=== PATIENT | male | born 1985 | race Caucasian/White ===

== ENCOUNTER 2017-01-19 01:18 | Emergency (ER) | payer OTHER ==
[~2017-01-19 01:18] MED LIST: ALBUTEROL17 G1 INH; ALBUTEROL17 GM INH; AMOXICILLIN PO; BACTRIM DS TABL1 TAB PO; DARVOCET-N 1001 TA1 DOB; LORTAB 2.5/5001 TAB PO; MEDROL PO; ULTRACET TABLET1 TAB PO
== END 2017-01-19 01:20 | disposition left against medical advice (07) ==
LOC: CFTX 01:18
DX: Z53.21 Procedure and treatment not carried out due to patient leaving prior to being seen by health care provider (principal)

== ENCOUNTER 2017-01-19 18:48 | Emergency (ER) | payer OTHER | END 2017-01-19 18:50 | disposition home or self-care (01) | LOC: CFTX 18:48 | DX: L02.415 Cutaneous abscess of right lower limb (principal); I10 Essential (primary) hypertension; F17.210 Nicotine dependence, cigarettes, uncomplicated; Z23 Encounter for immunization; Z88.0 Allergy status to penicillin | CPT/HCPCS: 90471; 90715; 99283 ==

== ENCOUNTER 2017-02-01 20:36 | Emergency (ER) | payer OTHER ==
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
== END 2017-02-01 21:38 | disposition home or self-care (01) ==
LOC: CED 20:36
DX: S06.0X0A Concussion without loss of consciousness, initial encounter (principal); F17.200 Nicotine dependence, unspecified, uncomplicated; W22.8XXA Striking against or struck by other objects, initial encounter; Y92.410 Unspecified street and highway as the place of occurrence of the external cause
CPT/HCPCS: 70450; 99284